=== PATIENT | male | born 1995 | race American Indian/Alaskan Native ===

== ENCOUNTER 2017-12-21 11:05 | Emergency (ER) | payer OTHER ==
[2017-12-21 11:10] VITALS: BMI 21.3
[2017-12-21 11:15] VITALS: RESP 18; O2SAT 98
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
[2017-12-21 13:12] VITALS: BP 124/70; PULSE 76; TEMP 98
== END 2017-12-21 13:11 | disposition home or self-care (01) ==
LOC: ED 11:05
DX: M25.511 Pain in right shoulder (principal); V49.9XXA Car occupant (driver) (passenger) injured in unspecified traffic accident, initial encounter
CPT/HCPCS: 73030; 96372; 99284; J1885